=== PATIENT | male | born 1970 | race Hispanic/Latino ===

== ENCOUNTER 2022-05-15 16:59 | Emergency (ER) | payer BC ==
[~2022-05-15] VITALS: Ht 170.2 cm; Wt 104.3 kg
[2022-05-15 17:46] LABS: BASOPHILS % (AUTO) 0.5 % (0.0-5.0); EOSINOPHILS % (AUTO) 3.4 % (0.0-8.0); HEMATOCRIT 41.1 % (42-54); LYMPHOCYTES % (AUTO) 23.7 % (21.0-51.0); MEAN CORPUSCULAR HEMOGLOBIN 28.2 pg (27.0-33.0); MEAN CORPUSCULAR HGB CONC 33.8 g/dL (32.0-36.0); MEAN CORPUSCULAR VOLUME 83.4 fL (79-99); MONOCYTES % (AUTO) 7.7 % (3.0-13.0); NEUTROPHILS % (AUTO) 64.4 % (40.0-77.0); PLATELET COUNT (AUTO) 208 K/uL (130-400); RED BLOOD CELL COUNT(AUTO) 4.93 MIL/uL (4.50-6.20); RED CELL DISTRIBUTION WIDTH 12.9 % (11.0-15.5); WHITE BLOOD COUNT (AUTO) 10.1 K/uL (4.8-10.8)
[2022-05-15 17:50] VITALS: BP 133/88
[2022-05-15 18:03] LABS: CREATININE 0.9 mg/dL (0.5-1.5); POTASSIUM 3.6 mmol/L (3.5-5.1)
[2022-05-15 18:04] LABS: ALBUMIN 3.4 g/dL (3.5-5.0); TOTAL PROTEIN, SERUM 7.1 g/dL (6.0-8.3)
[2022-05-15] MEDS ORDERED: LORA10TA7 PO (18:23)
== END 2022-05-15 18:51 | disposition home or self-care (01) ==
LOC: EDH 16:59
DX: J06.9 Acute upper respiratory infection, unspecified (principal); R05.8 Other specified cough; Z90.49 Acquired absence of other specified parts of digestive tract; Z20.822 Contact with and (suspected) exposure to COVID-19
CPT/HCPCS: 99283; 71045; 87635; 80053; 85025; 87804 ×2; 36415; C9803

== ENCOUNTER 2024-05-29 03:51 | Emergency (ER) | payer BC ==
[~2024-05-29] VITALS: Ht 170.2 cm; Wt 104.3 kg
[~2024-05-29 03:51] MED LIST: LORA10TA7 PO
--- NOTE | 2024-05-29 03:54 | NUR ---
COVID, FLU AND STREP SWABS COLLECTED AND SENT
--- NOTE | 2024-05-29 03:54 | NUR ---
REPORT TO MIGUEL NEAL
[2024-05-29 04:14] LABS: BASOPHILS # (AUTO) 0.04 K/uL (0.00-0.20); BASOPHILS % (AUTO) 0.5 % (0.0-5.0); EOSINOPHILS # (AUTO) 0.06 K/uL (0.00-0.70); EOSINOPHILS % (AUTO) 0.7 % (0.0-8.0); HEMATOCRIT 41.4 % (42-54); IMMATURE GRANULOCYTE ABSOLUTE 0.05 K/uL (0-1); LYMPHOCYTES # (AUTO) 0.8 K/uL (1.0-4.8); LYMPHOCYTES % (AUTO) 9.2 % (21.0-51.0); MEAN CORPUSCULAR HEMOGLOBIN 28.5 pg (27.0-33.0); MEAN CORPUSCULAR HGB CONC 33.8 g/dL (32.0-36.0); MEAN CORPUSCULAR VOLUME 84.1 fL (79-99); MONOCYTES # (AUTO) 0.6 K/uL (0.1-1.0); MONOCYTES % (AUTO) 7.1 % (3.0-13.0); NEUTROPHILS # (AUTO) 7.1 K/uL (1.8-7.7); NEUTROPHILS % (AUTO) 81.9 % (40.0-77.0); PLATELET COUNT (AUTO) 176 K/uL (130-400); RED BLOOD CELL COUNT(AUTO) 4.92 MIL/uL (4.50-6.20); RED CELL DISTRIBUTION WIDTH 12.5 % (11.0-15.5); WHITE BLOOD COUNT (AUTO) 8.6 K/uL (4.8-10.8)
[2024-05-29 04:14] LABS: RAPID GROUP A STREP negative (NEGATIVE)
[2024-05-29 04:18] LABS: SARS-CoV-2, RNA, NAAT NEGATIVE SARS CoV-2 (NEGATIVE)
[2024-05-29 04:24] LABS: INFLUENZA TYPE B Negative For Type B (NEGATIVE)
[2024-05-29] MEDS: acetaMINOPHEN 325 MG TAB PO ONE (04:28)
[2024-05-29] MEDS: ZOSYN 3.375GM +NS 50ML IV ONE (04:28)
[2024-05-29] MEDS: LACTATED RINGERS 1000ML 1,000 ML IV ONE (04:28)
[2024-05-29 04:30] LABS: CREATININE 0.9 mg/dL (0.5-1.3); POTASSIUM 3.5 mmol/L (3.5-5.1)
[2024-05-29 04:35] LABS: ALBUMIN 3.5 g/dL (3.5-5.0); BILIRUBIN,TOTAL 0.3 mg/dL (0.2-1.0); TOTAL PROTEIN, SERUM 7.1 g/dL (6.0-8.3)
[2024-05-29 04:36] LABS: APPEARANCE,URINE CLEAR (CLEAR); BILIRUBIN,URINE NEGATIVE (NEGATIVE); COLOR,URINE LIGHT-YELLOW (YELLOW); GLUCOSE, URINE (UA) NEGATIVE (NEGATIVE); KETONES,URINE NEGATIVE (NEGATIVE); LEUKOCYTE ESTERASE ,URINE NEGATIVE Leu/uL (NEGATIVE); NITRATE,URINE NEGATIVE (NEGATIVE); OCCULT BLOOD,URINE LARGE (NEGATIVE); PROTEIN,URINE NEGATIVE (NEGATIVE); UROBILINOGEN,URINE 0.2 mg/dL (0.2-1.0)
[2024-05-29 04:43] LABS: ADD UA MICROSCOPIC YES
[2024-05-29 04:50] LABS: INFLUENZA TYPE A Positive For Type A (NEGATIVE)
[2024-05-29 04:54] LABS: BACTERIA,URINE None Seen /HPF (None Seen); MUCUS,URINE Rare LPF (None Seen); RBC,URINE 26-50 /HPF (0-1); SQUAMOUS EPITHELIAL CELL,UR Rare /HPF (0-2); WBC,URINE 0-1 /HPF (0-1)
[2024-05-29] MEDS ORDERED: OSEL75CA17 PO (05:38)
--- NOTE | 2024-05-29 05:39 | ERN ---
General Chief Complaint: Sepsis Stated Complaint: FEVER, BACK PAIN Time Seen by MD: 04:03 History of Present Illness Initial Comments Mr Rouse is a 53-year-old male who comes in today with a chief complaint of upper respiratory symptoms. Patient reports that over the holiday season the patient was in contact with the ex- having upper respiratory symptoms. Patient feels he caught something from his . Allergies: Coded Allergies: No Known Drug Allergies (Unverified Allergy, Unknown, 05/15/22) Home Meds Active Scripts Loratadine (Loratadine) 10 Mg Tablet, 10 MG PO DAILY for 10 Days, #10 TAB Prov:SAVAGE HARRISON 05/15/22 Past Medical History Past Medical History: No Pertinent History Past Surgical History: Cholecystectomy ROS Dictation Constitutional: Fever chills Eyes: Negative for injury, pain,redness, and discharge ENT: Negative for injury,pain or swelling Cardiovascular: Negative for chest pain, palpitations, and edema Respiratory: Positive for shortness of breath Abdomen/GI: Negative for abdominal pain, nausea, vomiting, diarrhea, and constipation Back: Negative for injury and pain : Negative for injury, bleeding and discharge MS/Extremity: Negative for injury and deformity Skin: Negative for rash, and discoloration Neuro: Negative for headache, weakness, numbness, tingling, and seizure Psych: Negative for suicide ideation, homicidal ideation, and hallucinations Physical Exam Physical Exam Dictation General: awake, alert, NAD Head/Face: Normocephalic, atraumatic Eyes: PERRL, EOMI, ENT: oral cavity clear , congested nares Neck: Trachea midline Cardiovascular: RRR, normal S1/S2, Respiratory: Diminished breath sounds bilaterally in the lower lung ochoa Abdomen: Soft, non-tender, non-distended Skin: Warm, dry, normal turgor, no rash MS/Extremity: Pulses equal, no cyanosis, neurovascular intact, FROM Neuro: COAx4 Psych: Normal behavior, mood, and affect normal Results Laboratory and Microbiology Lab and Micro Result Laboratory Tests Test 05/29/24 03:54 05/29/24 04:05 05/29/24 04:10 Influenza Type A Antigen Positive For Type A Influenza Type B Antigen Negative For Type B SARS-CoV-2, RNA, NAAT NEGATIVE SARS CoV-2 Group A Streptococcus Rapid negative (NEGATIVE) White Blood Count 8.6 K/uL (4.8-10.8) Red Blood Count 4.92 MIL/uL (4.50-6.20) Hemoglobin 14.0 g/dL (14.0-18.0) Hematocrit 41.4 % (42-54) L Mean Corpuscular Volume 84.1 fL (79-99) Mean Corpuscular Hemoglobin 28.5 pg (27.0-33.0) Mean Corpuscular Hemoglobin Concent 33.8 g/dL (32.0-36.0) Red Cell Distribution Width 12.5 % (11.0-15.5) Platelet Count 176 K/uL (130-400) Mean Platelet Volume 11.5 fL (7.5-10.5) H Immature Granulocyte % (Auto) 0.6 % (0-1) Neutrophils (%) (Auto) 81.9 % (40.0-77.0) H Lymphocytes (%) (Auto) 9.2 % (21.0-51.0) L Monocytes (%) (Auto) 7.1 % (3.0-13.0) Eosinophils (%) (Auto) 0.7 % (0.0-8.0) Basophils (%) (Auto) 0.5 % (0.0-5.0) Neutrophils # (Auto) 7.1 K/uL (1.8-7.7) Lymphocytes # (Auto) 0.8 K/uL (1.0-4.8) L Monocytes # (Auto) 0.6 K/uL (0.1-1.0) Eosinophils # (Auto) 0.06 K/uL (0.00-0.70) Basophils # (Auto) 0.04 K/uL (0.00-0.20) Absolute Immature Granulocyte (auto 0.05 K/uL (0-1) Nucleated Red Blood Cells 0.0 % (0.0-0.19) Sodium Level 135 mmol/L (136-145) L Potassium Level 3.5 mmol/L (3.5-5.1) Chloride Level 102 mmol/L (101-111) Carbon Dioxide Level 23 mmol/L (21-32) Blood Urea Nitrogen 10 mg/dL (7-18) Creatinine 0.9 mg/dL (0.5-1.3) Glomerular Filtration Rate Calc 103 mL/min (>90) Random Glucose 109 mg/dL (70-105) H Total Calcium 8.3 mg/dL (8.5-10.1) L Total Bilirubin 0.3 mg/dL (0.2-1.0) Aspartate Amino Transf (AST/SGOT) 30 U/L (10-37) Alanine Aminotransferase (ALT/SGPT) 37 U/L (12-78) Alkaline Phosphatase 75 U/L (50-136) Total Protein 7.1 g/dL (6.0-8.3) Albumin 3.5 g/dL (3.5-5.0) Urine Color LIGHT-YELLOW (YELLOW) Urine Appearance CLEAR (CLEAR) Urine pH 6.0 (5.0-8.0) Urine Specific [place] 1.017 (1.001-1.031) Urine Protein NEGATIVE mg/dL (NEGATIVE) Urine Glucose (UA) NEGATIVE mg/dL (NEGATIVE) Urine Ketones NEGATIVE mg/dL (NEGATIVE) Urine Occult Blood LARGE (NEGATIVE) H Urine Nitrate NEGATIVE (NEGATIVE) Urine Bilirubin NEGATIVE mg/dL (NEGATIVE) Urine Urobilinogen 0.2 mg/dL (0.2-1.0) Urine Leukocyte Esterase NEGATIVE Neeta/uL Urine RBC 26-50 /HPF (0-1) H Urine WBC 0-1 /HPF (0-1) Urine Squamous Epithelial Cells Rare /HPF (0-2) Urine Bacteria None Seen /HPF (None Seen) MDM Patient appears to be flu A positive. Patient will be given Tamiflu. MDM: Differential diagnosis: Influenza A Rationale: Tests considered and ordered secondary to shared decision making include: Previous outside records reviewed: Old ER visits. Risk of complication and/or morbidity or mortality of patient management: None Medications-Per medication reconciliation Need for hospitalization: Patient does not meet criteria for hospitalization. Need for emergency major/minor surgery: No There are no social concerns with this patient. Prescription drug management Prescriptions will include symptomatic care Patient's prior external medical records from other ER visits were reviewed by me as indicated. Prior testing and results from previous visits were reviewed. Prior tests were taken into account with medical decision making and resource utilization, independent historian/historians were used to obtain complete medical history. I independently interpreted the test that were performed, results were reviewed by me and considered findings on radiology if ordered. Medical management and examination interpretation discussions were had by me with other qualified healthcare professionals as indicated for the patient's care. ED Course Orders Procedure Category Date Status Time Cbc With Differential LAB 05/29/24 In Process 03:54 Comprehensive LAB 05/29/24 Complete Metabolic Panel 03:54 Urinalysis Profile LAB 05/29/24 Complete 03:54 Lactated Ringers PHA 05/29/24 Complete 1000ml (Lactated 04:00 Acetaminophen 325 Tab PHA 05/29/24 Complete (Tylenol 325mg Tab 04:00 Zosyn 3.375gm+Ns 50ml PHA 05/29/24 Complete (Zosyn 3.375gm+Ns 04:00 Chest 1vw RAD 05/29/24 Taken 03:54 Covid Rna Naat LAB 05/29/24 Complete 03:55 Influenza Type A & B, LAB 05/29/24 Complete Rapid 03:55 Rapid (Group A Strep) LAB 05/29/24 Complete 03:55 Loratadine/Pseudophephedrine PHA 05/29/24 In Process (Claritin-D 05:00 Current Medications Medications (Trade) Dose Ordered Sig/Anna Route PRN Reason Start Time Stop Time Status Last Admin Dose Admin Acetaminophen (TYLenol 325MG TAB) 650 mg ONCE ONCE PO 05/29/24 04:00 05/29/24 04:01 DC 05/29/24 04:28 Lactated Ringer's 1,000 ml @ 0 mls/hr ONCE ONCE IV 05/29/24 04:00 05/29/24 04:01 DC 05/29/24 04:28 Loratadine/ Pseudoephedrine Sulfate (CLARitin-D 12 HOUR TABLET) 1 each BID PO 05/29/24 05:00 06/28/24 04:59 Piperacillin Sod/ Tazobactam Sod (Zosyn 3.375gm+NS 50ml) 3.375 gm ONCE ONCE IV 05/29/24 04:00 05/29/24 04:10 DC 05/29/24 04:28 Vital Signs Date Time Temp Pulse Resp B/P (MAP) Pulse Ox O2 Delivery O2 Flow Rate FiO2 05/29/24 04:28 102.6 05/29/24 04:04 102.6 66 20 120/88 100 Room Air* 0 21 05/29/24 03:52 102.2 118 22 139/96 97 Room Air DX & DISP Disposition: Discharge Departure Impression: Primary Impression: Influenza A Condition: Stable Scripts Oseltamivir Phosphate (Oseltamivir Phosphate) 75 Mg Capsule 75 MG PO BID for 5 Days, #10 CAP Prov: JOY LOCKE MD 05/29/24 Additional Instructions: Please take [id number] flu and cough medication that can be bought at any drug store. Please follow directions on package. Please follow up with the primary care physician in the next 1-7 days for continuance of care. Please wear a mask and let close family contacts now that you have flu A. Please drink plenty of fluids. Please take Tylenol for fever/pain Referrals: ANNABELLA GARSIA DO (PCP) JOY LOCKE MD May 29, 2024 05:39
[2024-05-29] MEDS: OSELTAMIVIR PHOSPHATE 75 MG CAP PO ONE (05:58)
[2024-05-29] MEDS: LORATAdine/pseudophEPHEDrine 5/120 MG 1 EACH TAB.SR.12H PO SCH (05:58)
[2024-05-29 06:06] VITALS: TEMP 99.3
[2024-05-29 06:07] VITALS: BP 119/74; PULSE 79; RESP 18; TEMP 99.3; O2SAT 100
--- NOTE | 2024-05-29 09:26 | HMCIMG ---
Exam Type: CHEST 1VW Clinical Information: Fever Comparison: None Findings: The lungs are clear of infiltrates. The heart is normal in size. The bony and soft tissue structures of the chest are unremarkable. Impression: Clear lungs.
== END 2024-05-29 06:17 | disposition home or self-care (01) ==
LOC: EDH 03:51
DX: J10.1 Influenza due to other identified influenza virus with other respiratory manifestations (principal); Z20.822 Contact with and (suspected) exposure to COVID-19; Z79.899 Other long term (current) drug therapy; Z90.49 Acquired absence of other specified parts of digestive tract
CPT/HCPCS: 99284; 96374; 71045; 87635; 80053; 85025; 87880; 87804 ×2; 81001; 36415; J7120; J2543